=== PATIENT | male | born 1935 | race Caucasian/White ===

== ENCOUNTER 2016-09-20 11:15 | Day surgery (SDC) | payer MEDICARE ==
--- NOTE | ~2016-09-20 | OP ---
Record Of Operation [facility] [address] [place]. [address] NAME: DEMETRIUS TERRY : 35 STATUS : [facility]#: [id number] AGE: 81 ADM/REG DATE : 09/20/16 MR#: [id number] REPORT SERV DATE: 09/21/16 DICTATED BY: LAURA MURPHY DATE: 09/21/16 REPORT STATUS : Draft TRANSCRIBED BY: MODL DATE: 09/21/16 DATE OF PROCEDURE: 09/20/2016 ATTENDING PHYSICIAN: Dr. Laura Murphy. TITLE OF OPERATION: Cystourethroscopy, incision and dilation of the bladder neck. Transurethral resection of bladder tumor approximately 4 cm in size. PREOPERATIVE DIAGNOSIS: 1. Bladder neck contracture. 2. Bladder mass. POSTOPERATIVE DIAGNOSIS: 1. Bladder neck contracture. 2. Bladder mass. INDICATIONS: Mr. Terry is an 81-year-old male with history of castrate resistant metastatic prostate cancer. He was found to have a mass within the lumen of the bladder on a CT scan. Office based cystoscopy demonstrated a bladder neck contracture. He is here for interrogation of these problems. ANESTHESIA: General. COMPLICATIONS: None. IMPLANTS: 18-Tristanian Sutherland catheter. SPECIMENS: Bladder tumor. NARRATIVE: The patient was brought to the operating room, identified by his wristband. General anesthesia was induced. Ancef was given for preoperative antibiotics. He was placed in the dorsal lithotomy position, prepped and draped in sterile fashion. His urethra was dilated to a caliber of 26-Tristanian using sounds. A 24-Tristanian resectoscope was then placed into his urethra at the level of the bladder neck. Using a cold knife, this bladder neck incision was incised circumferentially to allow placement of the 24-Tristanian sheath which was dilated at the bladder neck. The bladder was inspected. There was a 4 cm lesion along the right base of the bladder just distal and lateral to the ureteral orifice. Using a 24- Tristanian loop, this was resected down to its base. Muscle was obtained as specimen. The right ureteral orifice was uninjured as was the left. Hemostasis was obtained with cautery. There was no ongoing bleeding. The chips were removed from the bladder and sent to pathology. There were no complications. The patient was awoken from anesthesia and transferred to the recovery room in stable condition with an 18-Tristanian Sutherland catheter in place. I will leave this catheter for the weekend. He will follow up on Friday for Sutherland catheter removal. Record Of Operation [facility] [address] [place]. [address] NAME: DEMETRIUS TERRY : 35 STATUS : [facility] PAT#: [id number] AGE: 81 ADM/REG DATE : 09/20/16 MR#: [id number] REPORT SERV DATE: 09/21/16 DICTATED BY: LAURA MURPHY DATE: 09/21/16 REPORT STATUS : Draft TRANSCRIBED BY: STELLA DATE: 09/21/16 DONNA/STELLA Laura Murphy MD / [id number] CC: MD Brannon Goel M.D.
[~2016-09-20 11:15] MED LIST: ACET500CAP PO; ASAB PO; BENICAR20 PO; CALTRA600D PO; CETIRIZINE HCL5 MG PO; CO Q-10100 MG PO; COZAAR100 MG PO; ELIQUIS 2.5 MG2.5 MG PO; FISH-EPA1000 MG PO; FLECAINIDE100 MG PO; KLOR-CON 1010 MEQ PO; LEVAQUIN750 MG PO; LUPRON2 WEEK IJ; VITAMIN D400 UNI1 PO; ZOCOR10 PO
[2016-09-20 11:41] LABS: WBC (NOT ORDERED) (RFLEX) 0 (0-5)
[2016-09-20 12:04] LABS: ASCORBIC ACID (UR NOT ORDER) 20 (NEG); BILIRUBIN, URINE NEGATIVE (NEG); KETONE, URINE NEGATIVE (NEG); LEUKOCYTE ESTERASE(NOT OR NEG (NEG)
[2016-09-20 12:09] LABS: BASOPHILS 0.3 %; BASOPHILS ABSOLUTE 0.02 10/3/uL (0.0-0.16); EOSINOPHILS 1.1 %; EOSINOPHILS ABSOLUTE 0.07 10/3/uL (0.0-0.53); HEMATOCRIT 43.3 % (40.0-51.0); HEMOGLOBIN 14.3 g/dL (13.6-17.8); IMMATURE GRANULOCYTES 0.2 %; IMMATURE GRANULOCYTES ABSOLUTE 0.01 10/3/uL (0.0-0.11); LYMPHOCYTES 24.1 %; LYMPHOCYTES ABSOLUTE 1.48 10/3/uL (0.67-4.30); MEAN CORPUSCULAR HEMOGLOB 30.4 pg (26.0-34.0); MEAN CORPUSCULAR VOLUME 91.9 fL (80-100); MEAN PLATELET VOLUME 9.6 fL (9.2-13.0); MONOCYTES 7.5 %; MONOCYTES ABSOLUTE 0.46 10/3/uL (0.21-1.20); NEUTROPHILS 66.8 %; NEUTROPHILS ABSOLUTE 4.11 10/3/uL (2.02-8.40); PLATELET COUNT 282 10/3/uL (150-400); RBC DISTRIBUTION WIDTH 14.7 % (12.0-16.0); RED CELL COUNT 4.71 10/6/uL (4.7-6.1); WHITE BLOOD CELLS 6.2 10/3/uL (4.5-10.5)
[2016-09-20 12:10] LABS: MANUAL DIFF NO %
[2016-09-20 12:23] LABS: CALCIUM, SERUM 8.3 MG/DL (8.5-10.4); CHLORIDE, SERUM 106 MMOL/L (96-112); CO2 (CARBON DIOXIDE) 26 MMOL/L (24-34); CREATININE 1.22 MG/DL (0.70-1.30); GFR AFRICAN AMERICAN 64 ML/MIN (>=60); GFR NON AFRICAN AMERICAN 55 ML/MIN (>=60); GLUCOSE, SERUM 102 MG/DL (60-99); POTASSIUM, SERUM 4.7 MMOL/L (3.5-5.3); SODIUM, SERUM 141 MMOL/L (135-148)
[2016-09-20 12:24] LABS: BUN (BLOOD UREA NITROGEN) 20 MG/DL (6-23)
[2017-02-07] MEDS ORDERED: ULTRAM50 PO (13:53)
[2017-02-07] MEDS ORDERED: V-R VIT B-6100 MG PO (13:55)
[2017-02-07] MEDS ORDERED: ASAB PO (13:56)
[2017-02-07] MEDS ORDERED: XGEVA120 MG/1.7 SC (13:57)
[2017-02-07] MEDS ORDERED: MEGACEUDL PO (13:58)
[2017-02-07] MEDS ORDERED: B121000P IM (14:00)
[2017-02-08] MEDS ORDERED: MEPHYTON 5 MG TA5 MG PO (09:59)
[2017-02-11] MEDS ORDERED: ATRONASAL3 NAS (22:51)
[2017-02-19] MEDS ORDERED: OCEAN NAS (15:37)
[2017-02-19] MEDS ORDERED: NORCO1 TA1 PO (15:38)
[2017-02-19] MEDS ORDERED: ATV1 PO (15:38)
[2017-02-19] MEDS ORDERED: CAT1 PO (15:40)
[2017-02-19] MEDS ORDERED: SENTAB PO (15:40)
== END 2016-09-20 18:31 | disposition home or self-care (01) ==
LOC: SDC 11:15
PROVIDERS: Urology
PROC: 0TBB8ZX Excision of Bladder, Via Natural or Artificial Opening Endoscopic, Diagnostic (ICD-10-PCS; principal; 2016-09-20 14:15)
PROC: 0TJB8ZZ Inspection of Bladder, Via Natural or Artificial Opening Endoscopic (ICD-10-PCS; 2016-09-20 14:15)
DX: C61 Malignant neoplasm of prostate (principal); N32.0 Bladder-neck obstruction; E78.00 Pure hypercholesterolemia, unspecified; I48.91 Unspecified atrial fibrillation; I45.10 Unspecified right bundle-branch block; I10 Essential (primary) hypertension; Z79.52 Long term (current) use of systemic steroids; Z88.1 Allergy status to other antibiotic agents; Z79.899 Other long term (current) drug therapy; Z98.41 Cataract extraction status, right eye; Z98.42 Cataract extraction status, left eye; Z98.890 Other specified postprocedural states
CPT/HCPCS: 36415; 80048; 81001; 85025; 86850; 86900; 86901; 88307; 88341; 88342; 93005; J0360; J0690; J2370; J2405; J3010

== ENCOUNTER 2016-10-11 03:49 | Emergency (ER) | payer MEDICARE ==
[2017-02-07] MEDS ORDERED: ULTRAM50 PO (13:53)
[2017-02-07] MEDS ORDERED: V-R VIT B-6100 MG PO (13:55)
[2017-02-07] MEDS ORDERED: ASAB PO (13:56)
[2017-02-07] MEDS ORDERED: XGEVA120 MG/1.7 SC (13:57)
[2017-02-07] MEDS ORDERED: MEGACEUDL PO (13:58)
[2017-02-07] MEDS ORDERED: B121000P IM (14:00)
[2017-02-08] MEDS ORDERED: MEPHYTON 5 MG TA5 MG PO (09:59)
[2017-02-11] MEDS ORDERED: ATRONASAL3 NAS (22:51)
[2017-02-19] MEDS ORDERED: OCEAN NAS (15:37)
[2017-02-19] MEDS ORDERED: ATV1 PO (15:38)
[2017-02-19] MEDS ORDERED: NORCO1 TA1 PO (15:38)
[2017-02-19] MEDS ORDERED: CAT1 PO (15:40)
[2017-02-19] MEDS ORDERED: SENTAB PO (15:40)
== END 2016-10-11 04:00 | disposition home or self-care (01) ==
LOC: ER 03:49
PROC: 0T2BX0Z Change Drainage Device in Bladder, External Approach (ICD-10-PCS; principal; 2016-10-11)
DX: R33.9 Retention of urine, unspecified (principal); I10 Essential (primary) hypertension; Z87.01 Personal history of pneumonia (recurrent); F17.200 Nicotine dependence, unspecified, uncomplicated; Z88.1 Allergy status to other antibiotic agents; Z79.899 Other long term (current) drug therapy; Z85.9 Personal history of malignant neoplasm, unspecified
CPT/HCPCS: 99283